=== PATIENT | female | born 1985 | race Caucasian/White ===

== ENCOUNTER 2019-01-20 14:16 | Emergency (ER) | payer OTHER, SELFPAY ==
[2019-01-20 14:46] VITALS: BP 143/97; PULSE 87; RESP 16; TEMP 37.1; O2SAT 100; BMI 24.1
[2019-01-20 14:59] LABS: RBC Urine None Seen (0-5/HPF)
[2019-01-20 15:05] LABS: Appearance Urine UA CLEAR; Bilirubin Urine UA NEGATIVE (NEGATIVE); Color Urine UA YELLOW; Glucose Urine UA NEGATIVE (Negative); Ketones Urine UA TRACE (NEGATIVE); Leukocyte Esterase Urine UA NEGATIVE (NEGATIVE); Nitrite Urine UA NEGATIVE (Negative); Occult Blood Urine UA NEGATIVE (Negative); Protein Urine UA NEGATIVE (Negative); Specific Gravity Urine UA 1.025 (1.000-1.035); Urobilinogen Urine UA 0.2 E.U./dL (0.2)
[2019-01-20 15:08] LABS: Pregnancy Test Urine Negative (Negative)
[2019-01-20 15:14] LABS: Amorphous Sediment Urine 1+; Bacteria Urine Occasional (0-1); Culture Indicated Urine Cult Not Indicated; Mucus Urine 1+ (Negative); Squamous Epithelial Cell Urine 0-1 /HPF (0-5/HPF); WBC Urine 0-1/HPF (0-5/HPF)
[2019-01-20 15:48] LABS: Add Manual Diff / Slide Review NO; Basophils Absolute Auto 100 /uL (0-100); Basophils Percent Auto 0.5 % (0-2); Eosinophils Absolute Auto 100 /uL (0-450); Hematocrit 40.3 % (36-46); Hemoglobin 13.9 g/dL (12.0-16.0); Lymphocytes Absolute Auto 2000 /uL (1100-4500); Lymphocytes Percent Auto 18.4 % (25-40); Mean Corpuscular HGB Conc 34.4 % (30-36); Mean Corpuscular Hemoglobin 31.2 PG (26-34); Mean Corpuscular Volume 90.7 fL (80-100); Monocytes Absolute Auto 700 /uL (0-900); Monocytes Percent Auto 6.7 % (3-14); Neutrophils Absolute Auto 8000 /uL (1500-7000); Neutrophils Percent Auto 73.4 % (50-75); Platelet Count 286 X10^3/uL (150-400); Red Blood Cell Count 4.45 X10^6/uL (4.0-5.2); Red Cell Distribution Width 12.3 % (11.6-14.8); White Blood Cell Count 10.9 X10^3/uL (4.5-11.0)
[2019-01-20 15:54] LABS: INR 0.9 (0.9-1.3); Prothrombin Time 10.4 SECONDS (10.1-12.7)
[2019-01-20 15:57] LABS: PTT Partial Thromboplastin Tim 32 SECONDS (26.4-36.2)
[2019-01-20 15:59] LABS: Alanine Aminotransferase 13 IU/L (<35); Albumin 4.4 g/dL (3.5-5.0); Albumin Globulin Ratio 1.6 (1.0-2.8); Alkaline Phosphatase 83 U/L (38-126); Aspartate Aminotransferase 21 IU/L (14-36); BUN Creatinine Ratio 25.7 (6-22); Bilirubin Total 0.5 mg/dL (0.2-1.3); Blood Urea Nitrogen 18 mg/dL (7-17); Calcium 9.1 mg/dL (8.4-10.2); Carbon Dioxide 25 mmol/L (22-32); Chloride 105 mmol/L (98-107); Estimated Glomerular Filt Rate > 60.0 mL/min (>60); Globulin 2.8 g/dL (1.7-4.1); Glucose 148 mg/dL (70-100); HEMOLYSIS < 15 (0-50); Lipase 98 U/L (23-300); Potassium 3.5 mmol/L (3.4-5.1); Sodium 138 mmol/L (137-145); Total Protein 7.2 g/dL (6.3-8.2)
--- NOTE | 2019-01-20 16:02 | DI.US.S_ITS ---
PROCEDURE: US PELVIC COMPLETE INDICATIONS: PAIN TECHNIQUE: Real-time scanning was performed of the pelvic organs, with image documentation. Additional endovaginal scanning was necessary due to incomplete visualization of the adnexal and endometrial structures by transabdominal scanning. COMPARISON: None. FINDINGS: Transabdominal scanning: Limited scanning through the kidneys shows no hydronephrosis. No pathologic free abdominal or pelvic fluid. Endovaginal scanning: Uterus: Uterus measures 7.5 x 4.5 x 5.8 cm. The endometrium measures 1.8 cm in combined thickness. No internal vascularity on color Doppler interrogation. Ovaries: The right ovary measures 2.2 x 1.3 x 1.3 cm and the left ovary measures 3.9 x 2.6 x 2.7 cm. There is a hypoechoic cystic collection in the left ovary measuring up to 2.2 x 1.4 x 1.7 cm with linear internal septations and distinct echoes suggestive of a hemorrhagic cyst. There is patent arterial flow demonstrated in the right and left ovaries. IMPRESSION: 1. Probable hemorrhagic cyst within the left ovary. Recommend a followup repeat study in 6 weeks to demonstrate resolution if clinically indicated. Dictated by: Garfield Pearson M.D. on 01/20/2019 at 16:42 Approved by: Garfield Pearson M.D. on 01/20/2019 at 16:45
[2019-01-20 16:54] VITALS: BP 129/90; PULSE 80; RESP 16; O2SAT 100
[2019-01-20] MEDS: KETOROLAC 60 MG/2 ML VIAL 30 MG IV (17:11)
[2019-01-20] MEDS: KETOROLAC 10MG PREPACK 1 BOTTLE MISC (18:37)
[2019-01-20 18:44] VITALS: BP 105/70; PULSE 77; RESP 18; TEMP 36.6; O2SAT 100
--- NOTE | 2019-01-20 20:33 | ED_ITS ---
HPI - Abdominal Pain <RERE Bowden - Last Filed: 01/20/19 20:38> General Chief Complaint: Abdominal Pain Stated Complaint: middle abd pain Time Seen by Provider: 01/20/19 16:12 Source: patient Mode of arrival: Ambulatory Limitations: no limitations History of Present Illness HPI narrative: The patient is a 33-year-old female nonsmoker who denies medical history who presents with a chief complaint of middle lower abdominal pain sudden onset last night during intercourse. She has not taken anything for pain. She denies any fevers nausea vomiting or diarrhea. Last bowel movement this morning and normal. Denies any dysuria urgency or frequency. Denies any vaginal discharge or bleeding. States that she is at no risk for sexually transmitted infections and is not concerned about that possibility. Related Data Previous Rx's Medication Instructions Recorded ketorolac 10 mg PO TID PRN #15 tab 01/20/19 Allergies Allergy/AdvReac Type Severity Reaction Status Date / Time No Known Drug Allergies Allergy Verified 01/20/19 17:11 Review of Systems <RERE Bowden - Last Filed: 01/20/19 20:38> Review of Systems Narrative: GENERAL: Denies chills, fatigue, malaise, fever, sweats. HEENT: Denies sinus pain, ear pain, sore throat, difficulty swallowing, dizziness. RESPIRATORY: Denies dyspnea, cough, wheezing, hemoptysis, sputum. CARDIOVASCULAR: Denies chest pain, palpitations, orthopnea, edema, GASTROINTESTINAL: See HPI : See HPI MUSCULOSKELETAL: denies weakness, joint pain, or bony pain SKIN: Denies rash, skin lesions, or other NEUROLOGIC: Denies weakness, headache, numbness, change in speech, confusion, seizures, incoordination. PSYCHIATRIC: No concerning psychosocial issues. 12 point review of systems is negative except for those stated above Patient History <RERE Bowden - Last Filed: 01/20/19 20:38> Social History Smoking Status: Never smoker Smoking Status: Never smoker alcohol intake frequency: holidays/special occasions only Substance Use Type: does not use Exam <RERE Bowden - Last Filed: 01/20/19 20:38> Narrative Exam Narrative: GENERAL: This is a well-nourished, well-developed patient, no acute distress HEAD: Atraumatic. Normocephalic. No temporal or scalp tenderness. EYES: Pupils equal round and reactive. Extraocular motions intact. No scleral icterus. No injection or drainage. ENT: Nose without bleeding, purulent drainage or septal hematoma. Throat without erythema, tonsillar hypertrophy or exudate. Uvula midline. Airway patent. NECK: Trachea midline. No JVD or lymphadenopathy. Supple, nontender, no meningeal signs. CARDIOVASCULAR: Regular rate and rhythm without murmurs, gallops, or rubs. RESPIRATORY: Clear to auscultation. Breath sounds equal bilaterally. No wheezes, rales, or rhonchi. No cough. No increased respiratory effort. No accessory muscle use. GASTROINTESTINAL: Abdomen soft, diffuse suprapubic tenderness to palpation, nondistended. No hepato-splenomegaly, or palpable masses. No guarding. Active bowel sounds all 4 quadrants EXTREMITIES: No clubbing, cyanosis, or edema. No joint tenderness, effusion, or edema noted. BACK: Nontender without deformity or crepitance. No flank tenderness. NEURO: AOx3. SKIN: No rash or erythema on visible skin Initial Vital Signs Initial Vital Signs: Vital Signs Temperature 98.8 F 01/20/19 14:46 Pulse Rate 87 01/20/19 14:46 Respiratory Rate 16 01/20/19 14:46 Blood Pressure 143/97 H 01/20/19 14:46 Pulse Oximetry 100 01/20/19 14:46 <Katie Hall MD - Last Filed: 01/22/19 11:58> Initial Vital Signs Initial Vital Signs: Vital Signs Temperature 98.8 F 01/20/19 14:46 Pulse Rate 87 01/20/19 14:46 Respiratory Rate 16 01/20/19 14:46 Blood Pressure 143/97 H 01/20/19 14:46 Pulse Oximetry 100 01/20/19 14:46 Course <RERE Bowden - Last Filed: 01/20/19 20:38> Orders Ordered: Discontinued Medications Ketorolac Tromethamine (Toradol) 60 mg IM NOW ONE Stop: 01/20/19 17:02 Last Admin: 01/20/19 17:11 Dose: Not Given Documented by: SCANAPO Ketorolac Tromethamine (Toradol) 30 mg IV NOW ONE Stop: 01/20/19 17:12 Last Admin: 01/20/19 17:11 Dose: 30 mg Documented by: SCANAPO Ketorolac Tromethamine (Toradol 10mg Prepack) 1 bottle MISC SEEINSTR ONE Stop: 01/20/19 18:20 Last Admin: 01/20/19 18:37 Dose: 1 bottle Documented by: LAI Vital Signs Vital signs: Vital Signs - 8 hr 01/20/19 14:46 01/20/19 16:54 01/20/19 18:44 Temperature 98.8 F 97.8 F Pulse Rate 87 80 77 Respiratory Rate 16 16 18 Blood Pressure 143/97 H 105/70 Blood Pressure [Right Arm] 129/90 Pulse Oximetry 100 100 100 <Katie Hall MD - Last Filed: 01/22/19 11:58> Orders Ordered: Discontinued Medications Ketorolac Tromethamine (Toradol) 60 mg IM NOW ONE Stop: 01/20/19 17:02 Last Admin: 01/20/19 17:11 Dose: Not Given Documented by: SCANAPO Ketorolac Tromethamine (Toradol) 30 mg IV NOW ONE Stop: 01/20/19 17:12 Last Admin: 01/20/19 17:11 Dose: 30 mg Documented by: SCANAPO Ketorolac Tromethamine (Toradol 10mg Prepack) 1 bottle MISC SEEINSTR ONE Stop: 01/20/19 18:20 Last Admin: 01/20/19 18:37 Dose: 1 bottle Documented by: LAI Vital Signs Vital signs: Vital Signs - 8 hr 01/20/19 14:46 01/20/19 16:54 01/20/19 18:44 Temperature 98.8 F 97.8 F Pulse Rate 87 80 77 Respiratory Rate 16 16 18 Blood Pressure 143/97 H 105/70 Blood Pressure [Right Arm] 129/90 Pulse Oximetry 100 100 100 MDM - Abdominal Pain <RERE Bowden - Last Filed: 01/20/19 20:38> Lab Data Result diagrams: 01/20/19 15:22 01/20/19 15:22 Labs: Lab Results 01/20/19 01/20/19 01/20/19 Range/Units 14:53 14:53 15:22 WBC 10.9 (4.5-11.0) X10^3/uL RBC 4.45 (4.0-5.2) X10^6/uL Hgb 13.9 (12.0-16.0) g/dL Hct 40.3 (36-46) % MCV 90.7 (80-100) fL MCH 31.2 (26-34) PG MCHC 34.4 (30-36) % RDW 12.3 (11.6-14.8) % Plt Count 286 (150-400) X10^3/uL Neut % (Auto) 73.4 (50-75) % Lymph % (Auto) 18.4 L (25-40) % Stark % (Auto) 6.7 (3-14) % Eos % (Auto) 1.0 L (2-4) % Baso % (Auto) 0.5 (0-2) % Neut # (Auto) 8000 H (5485-7837) /uL Lymph # (Auto) 2000 (5216-2682) /uL Stark # (Auto) 700 (0-900) /uL Eos # (Auto) 100 (0-450) /uL Baso # (Auto) 100 (0-100) /uL PT (10.1-12.7) SECONDS INR (0.9-1.3) APTT (26.4-36.2) SECONDS Sodium (137-145) mmol/L Potassium (3.4-5.1) mmol/L Chloride (98-107) mmol/L Carbon Dioxide (22-32) mmol/L BUN (7-17) mg/dL Creatinine (0.52-1.04) mg/dL Estimated GFR (>60) mL/min BUN/Creatinine Ratio (6-22) Glucose (70-100) mg/dL Calcium (8.4-10.2) mg/dL Total Bilirubin (0.2-1.3) mg/dL AST (14-36) IU/L ALT (<35) IU/L Alkaline Phosphatase (38-126) U/L Total Protein (6.3-8.2) g/dL Albumin (3.5-5.0) g/dL Globulin (1.7-4.1) g/dL Albumin/Globulin Ratio (1.0-2.8) Lipase (23-300) U/L Urine Color Yellow Urine Appearance Clear Urine pH 5.0 (4.5-8.0) Ur Specific [place] 1.025 (1.000-1.035) Urine Protein Negative (Negative) Urine Glucose (UA) Negative (Negative) g/dL Urine Ketones Trace H (NEGATIVE) Urine Occult Blood Negative (Negative) Urine Nitrate Negative (Negative) Urine Bilirubin Negative (NEGATIVE) Urine Urobilinogen 0.2 (0.2) E.U./dL Ur Leukocyte Esterase Negative (NEGATIVE) Urine RBC None seen (0-5/HPF) Urine WBC 0-1/hpf (0-5/HPF) Ur Squamous Epith Cells 0-1 /hpf (0-5/HPF) Amorphous Sediment 1+ Urine Bacteria Occasional (0-1) (None) Urine Mucus 1+ H (Negative) Ur Culture Indicated? Cult not indicated Urine Test Negative (Negative) 01/20/19 01/20/19 Range/Units 15:22 15:22 WBC (4.5-11.0) X10^3/uL RBC (4.0-5.2) X10^6/uL Hgb (12.0-16.0) g/dL Hct (36-46) % MCV (80-100) fL MCH (26-34) PG MCHC (30-36) % RDW (11.6-14.8) % Plt Count (150-400) X10^3/uL Neut % (Auto) (50-75) % Lymph % (Auto) (25-40) % Stark % (Auto) (3-14) % Eos % (Auto) (2-4) % Baso % (Auto) (0-2) % Neut # (Auto) (5509-3828) /uL Lymph # (Auto) (3664-2475) /uL Stark # (Auto) (0-900) /uL Eos # (Auto) (0-450) /uL Baso # (Auto) (0-100) /uL PT 10.4 (10.1-12.7) SECONDS INR 0.9 (0.9-1.3) APTT 32 (26.4-36.2) SECONDS Sodium 138 (137-145) mmol/L Potassium 3.5 (3.4-5.1) mmol/L Chloride 105 (98-107) mmol/L Carbon Dioxide 25 (22-32) mmol/L BUN 18 H (7-17) mg/dL Creatinine 0.70 (0.52-1.04) mg/dL Estimated GFR > 60.0 (>60) mL/min BUN/Creatinine Ratio 25.7 H (6-22) Glucose 148 H (70-100) mg/dL Calcium 9.1 (8.4-10.2) mg/dL Total Bilirubin 0.5 (0.2-1.3) mg/dL AST 21 (14-36) IU/L ALT 13 (<35) IU/L Alkaline Phosphatase 83 (38-126) U/L Total Protein 7.2 (6.3-8.2) g/dL Albumin 4.4 (3.5-5.0) g/dL Globulin 2.8 (1.7-4.1) g/dL Albumin/Globulin Ratio 1.6 (1.0-2.8) Lipase 98 (23-300) U/L Urine Color Urine Appearance Urine pH (4.5-8.0) Ur Specific [place] (1.000-1.035) Urine Protein (Negative) Urine Glucose (UA) (Negative) g/dL Urine Ketones (NEGATIVE) Urine Occult Blood (Negative) Urine Nitrate (Negative) Urine Bilirubin (NEGATIVE) Urine Urobilinogen (0.2) E.U./dL Ur Leukocyte Esterase (NEGATIVE) Urine RBC (0-5/HPF) Urine WBC (0-5/HPF) Ur Squamous Epith Cells (0-5/HPF) Amorphous Sediment Urine Bacteria (None) Urine Mucus (Negative) Ur Culture Indicated? Urine Test (Negative) Imaging Data pelvic ultrasound: Radiologist's impression: [place] [address] Ultrasound Report Signed Patient: Julee Parra LMR#: [id number] : 1985Acct:[id number] Age/Sex: 33 / FDate of Service: 01/20/19 Loc: ED Accession Number: [id number] Procedure: US pelvic complete Ordering Provider: Alysia Deleon-BC PROCEDURE: US PELVIC COMPLETE INDICATIONS: PAIN TECHNIQUE: Real-time scanning was performed of the pelvic organs, with image documentation. Additional endovaginal scanning was necessary due to incomplete visualization of the adnexal and endometrial structures by transabdominal scanning. COMPARISON: None. FINDINGS: Transabdominal scanning: Limited scanning through the kidneys shows no hydronephrosis. No pathologic free abdominal or pelvic fluid. Endovaginal scanning: Uterus: Uterus measures 7.5 x 4.5 x 5.8 cm. The endometrium measures 1.8 cm in combined thickness. No internal vascularity on color Doppler interrogation. Ovaries: The right ovary measures 2.2 x 1.3 x 1.3 cm and the left ovary measures 3.9 x 2.6 x 2.7 cm. There is a hypoechoic cystic collection in the left ovary measuring up to 2.2 x 1.4 x 1.7 cm with linear internal septations and distinct echoes suggestive of a hemorrhagic cyst. There is patent arterial flow demonstrated in the right and left ovaries. IMPRESSION: 1. Probable hemorrhagic cyst within the left ovary. Recommend a followup repeat study in 6 weeks to demonstrate resolution if clinically indicated. Dictated by: Garfield Pearson M.D. on 01/20/2019 at 16:42 Approved by: Garfield Pearson M.D. on 01/20/2019 at 16:45 [facility] Narrative Medical decision making narrative: The patient is a 33-year-old female who presents with a chief complaint of sudden onset of pelvic pain last night during intercourse. She responded well to Toradol in the emergency department. Her labs are within normal limits. Ultrasound is concerning for a left ovarian cyst with no torsion. Patient did decline a pelvic exam and STI testing in the emergency department. She is at low risk given that she is , and furthermore sudden onset does not correlate with PID or STI. I discussed at length that she needs to follow up with primary care provider, gave her contact information for the [facility] health resource management specialist as well as coming back to the emergency department for any acute concerns such as sudden onset of severe lower abdominal pain. Patient has no questions or concerns upon discharge and states understanding of return precautions as well as follow-up care. She was discharged with a prescription of Toradol and states understanding of not taking that with any other NSAIDs. <Katie Hall MD - Last Filed: 01/22/19 11:58> Lab Data Labs: Lab Results 01/20/19 01/20/19 01/20/19 Range/Units 14:53 14:53 15:22 WBC 10.9 (4.5-11.0) X10^3/uL RBC 4.45 (4.0-5.2) X10^6/uL Hgb 13.9 (12.0-16.0) g/dL Hct 40.3 (36-46) % MCV 90.7 (80-100) fL MCH 31.2 (26-34) PG MCHC 34.4 (30-36) % RDW 12.3 (11.6-14.8) % Plt Count 286 (150-400) X10^3/uL Neut % (Auto) 73.4 (50-75) % Lymph % (Auto) 18.4 L (25-40) % Stark % (Auto) 6.7 (3-14) % Eos % (Auto) 1.0 L (2-4) % Baso % (Auto) 0.5 (0-2) % Neut # (Auto) 8000 H (2249-7729) /uL Lymph # (Auto) 2000 (2735-1473) /uL Stark # (Auto) 700 (0-900) /uL Eos # (Auto) 100 (0-450) /uL Baso # (Auto) 100 (0-100) /uL PT (10.1-12.7) SECONDS INR (0.9-1.3) APTT (26.4-36.2) SECONDS Sodium (137-145) mmol/L Potassium (3.4-5.1) mmol/L Chloride (98-107) mmol/L Carbon Dioxide (22-32) mmol/L BUN (7-17) mg/dL Creatinine (0.52-1.04) mg/dL Estimated GFR (>60) mL/min BUN/Creatinine Ratio (6-22) Glucose (70-100) mg/dL Calcium (8.4-10.2) mg/dL Total Bilirubin (0.2-1.3) mg/dL AST (14-36) IU/L ALT (<35) IU/L Alkaline Phosphatase (38-126) U/L Total Protein (6.3-8.2) g/dL Albumin (3.5-5.0) g/dL Globulin (1.7-4.1) g/dL Albumin/Globulin Ratio (1.0-2.8) Lipase (23-300) U/L Urine Color Yellow Urine Appearance Clear Urine pH 5.0 (4.5-8.0) Ur Specific [place] 1.025 (1.000-1.035) Urine Protein Negative (Negative) Urine Glucose (UA) Negative (Negative) g/dL Urine Ketones Trace H (NEGATIVE) Urine Occult Blood Negative (Negative) Urine Nitrate Negative (Negative) Urine Bilirubin Negative (NEGATIVE) Urine Urobilinogen 0.2 (0.2) E.U./dL Ur Leukocyte Esterase Negative (NEGATIVE) Urine RBC None seen (0-5/HPF) Urine WBC 0-1/hpf (0-5/HPF) Ur Squamous Epith Cells 0-1 /hpf (0-5/HPF) Amorphous Sediment 1+ Urine Bacteria Occasional (0-1) (None) Urine Mucus 1+ H (Negative) Ur Culture Indicated? Cult not indicated Urine Test Negative (Negative) 01/20/19 01/20/19 Range/Units 15:22 15:22 WBC (4.5-11.0) X10^3/uL RBC (4.0-5.2) X10^6/uL Hgb (12.0-16.0) g/dL Hct (36-46) % MCV (80-100) fL MCH (26-34) PG MCHC (30-36) % RDW (11.6-14.8) % Plt Count (150-400) X10^3/uL Neut % (Auto) (50-75) % Lymph % (Auto) (25-40) % Stark % (Auto) (3-14) % Eos % (Auto) (2-4) % Baso % (Auto) (0-2) % Neut # (Auto) (0055-2652) /uL Lymph # (Auto) (5616-5853) /uL Stark # (Auto) (0-900) /uL Eos # (Auto) (0-450) /uL Baso # (Auto) (0-100) /uL PT 10.4 (10.1-12.7) SECONDS INR 0.9 (0.9-1.3) APTT 32 (26.4-36.2) SECONDS Sodium 138 (137-145) mmol/L Potassium 3.5 (3.4-5.1) mmol/L Chloride 105 (98-107) mmol/L Carbon Dioxide 25 (22-32) mmol/L BUN 18 H (7-17) mg/dL Creatinine 0.70 (0.52-1.04) mg/dL Estimated GFR > 60.0 (>60) mL/min BUN/Creatinine Ratio 25.7 H (6-22) Glucose 148 H (70-100) mg/dL Calcium 9.1 (8.4-10.2) mg/dL Total Bilirubin 0.5 (0.2-1.3) mg/dL AST 21 (14-36) IU/L ALT 13 (<35) IU/L Alkaline Phosphatase 83 (38-126) U/L Total Protein 7.2 (6.3-8.2) g/dL Albumin 4.4 (3.5-5.0) g/dL Globulin 2.8 (1.7-4.1) g/dL Albumin/Globulin Ratio 1.6 (1.0-2.8) Lipase 98 (23-300) U/L Urine Color Urine Appearance Urine pH (4.5-8.0) Ur Specific [place] (1.000-1.035) Urine Protein (Negative) Urine Glucose (UA) (Negative) g/dL Urine Ketones (NEGATIVE) Urine Occult Blood (Negative) Urine Nitrate (Negative) Urine Bilirubin (NEGATIVE) Urine Urobilinogen (0.2) E.U./dL Ur Leukocyte Esterase (NEGATIVE) Urine RBC (0-5/HPF) Urine WBC (0-5/HPF) Ur Squamous Epith Cells (0-5/HPF) Amorphous Sediment Urine Bacteria (None) Urine Mucus (Negative) Ur Culture Indicated? Urine Test (Negative) Discharge Plan Departure Patient Disposition: Home Clinical Impression: Cyst of left ovary Discharge Date/Time: 01/20/19 18:46 Instructions: DI for Ovarian Cyst Activity Restrictions/Additional Instructions: Today ultrasound shows a ovarian cyst on your left side. Please follow-up with primary care provider for repeat imaging etcetera. I've given you contact information for the [facility] health resource management specialist. They can help you arrange a PCP. I've given her prescription of Toradol. I sent this to [facility] in [facility]. I have given you a prescription of Toradol. This is an NSAID. Do not combine it with other NSAIDs such as Aleve or ibuprofen. I suggest taking it with some food, as it can irritate your stomach. Please come back to the emergency department for any acute concerns such as sudden severe abdominal pain, inability keep down fluids etc. Prescriptions: New ketorolac 10 mg tablet 10 mg PO TID PRN (Reason: pain) Qty: 15 RF: 0 Referrals: [facility] [Outside]
== END 2019-01-20 18:46 | disposition home or self-care (01) ==
PROVIDERS: Emergency Medicine; Emergency Provider Nurse Practitioner Family
DX: N83.202 Unspecified ovarian cyst, left side (principal)
CPT/HCPCS: 36415; 76830; 76856; 80053; 81001; 81025; 83690; 85025; 85610; 85730; 96374; 99282; 99284; J1885

== ENCOUNTER 2019-04-09 10:53 | Day surgery (SDC) | payer OTHER, SELFPAY ==
[2019-04-08 08:30] VITALS: BMI 23.6
[2019-04-09] VITALS (9 sets, daily range): BP systolic 102–123; BP diastolic 62–81; PULSE 79–89; RESP 10–16; TEMP 36.6–37.2; O2SAT 98–100; BMI 23.6
--- NOTE | 2019-04-09 | PATH_ITS ---
[facility] Accession Number: [id number] . 01 Material submitted: . hemorrhoids - RECTAL HEMORRHOID . 01 Diagnosis: Anus, Hemorrhoidectomy: External hemorrhoidal tissue. Negative for dysplasia and malignancy. MRV 04/11/2019 1241 Local . 01 Electronically signed: . Katlyn Cr MD, Pathologist NPI- [id number] . 01 Gross description: . RECTAL HEMORRHOID: Received in formalin is 1 fragment of abebe soft tissue measuring 12.0 x 1.5 x 1.2 cm. Tissue is inked,. Specimen is sectioned and submitted in logistics service representative sections in 1 cassette. /[facility] 04/09/2019 1950 Local . 01 Pathologist provided ICD-10: K64.4 . 01 CPT . 251044 Performed at: [address] [id number] MD Garfield Hernandez MD Phone: [phone]
--- NOTE | 2019-04-09 11:48 | PM.PREOP ---
Pre-operative Note Interval Note History & Physical reviewed/Exam performed by Physician: Yes Changes to H&P: No
[2019-04-09] MEDS: LACTATED RINGERS 1,000 ML 42 ML IV (11:55)
[2019-04-09] MEDS: CEFAZOLIN 2 GM/100 ML FROZ.PIGGY IV (12:15)
--- NOTE | 2019-04-09 12:33 | SUR.OPER ---
Lithotomy on padded OR bed, head on pillow, arms secured on padded arm boards at <90 degrees abduction. Legs secured in padded yellow fins stirrups.
[2019-04-09] MEDS: DIBUCAINE 1% OINT 28 GM 1 APPLIC TOP (12:43)
[2019-04-09] MEDS: BUPIVACAINE 0.25% (PF) VIAL 30 ML INJ (12:49)
--- NOTE | 2019-04-09 13:34 | P.OP_ITS ---
Operative Date/Time/Diagnoses Date of procedure: 04/09/19 Time of procedure: 13:34 Pre-op diagnosis: Umbilical hernia Hemorrhoids Post-op diagnosis: same Procedure & Clinicians Procedure: Open umbilical hernia repair without mesh Exicisional hemorrhoidectomy Same procedure as scheduled: Yes Indications: Symptomatic umbilical hernia Thrombosed external hemorrhoid Surgeon: Manny Muñoz Click Yes if Unassisted: Yes Anesthesia Type: General Operative Notes Findings: Thrombosed left lateral hemorrhoid Umbilical fascial defect 1 cm Specimen(s): other (hemorrhoid) Estimated Blood Loss (mL): 20 Procedure in detail: Patient was brought to the operating room placed supine on the table. Bilateral lower extremity compression devices were applied. General anesthesia was inducedand they were intubated with an endotracheal tube. They received 2 g of Ancef prior to skin incision. They were prepped and draped in sterile fashion. A time-out was performed ensure the correct patient procedure necessary equipment within the operating room. A curvilinear incision was made inferior to the umbilicus. The subcutaneous tissues were divided. The umbilical hernia was identified and was dissected off the umbilicus and circumferentially. The umbilical hernia sac was opened carefully using [place] and contained viable omentum. The hernia sac was then closed with 3 0 Vicryl suture. The sac was reduced into the abdomen and the fascia was cleared from above in order to accommodate the mesh. The fascial edges were then reapproximated with a [id number] 0 PDS suture. A Pro Loop polypropylene mesh was inserted over the fascial defect. It was secured to the fascia using 0 Prolene suture in interrupted fashion. The subcutaneous tissues were reapproximated using 3 0 Vicryl skin closed with 4 0 Monocryl upon by the application of Dermabond and Steri-Strips. Sponge instrument count at the end of the operation was correct. Rectal block was performed by injecting 20 mL of 0.25% bupivacaine into the intersphincteric groove. A internal examination of the anal canal was made. 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 It was grasped elevated and excised with electorcautery off the internal spincter. The mucosal defect was then closed with a running 0 Vicyrl suture. Hemostasis was checked. The specimen were passed off the field. Wound was irrigated with saline. Gelfoam was then placed into the anal anal. Sponge and instrument counts were correct at the end of the procedure. They emerged from anesthesia were extubated and transferred to the postoperative care unit in stable condition Complications: none Post-operative Condition: stable Disposition: same day surgery
[2019-04-09] MEDS: ONDANSETRON 4 MG ODT SL (15:14)
== END 2019-04-09 15:36 | disposition home or self-care (01) ==
PROVIDERS: Referring Provider Surgery; Visit Provider Surgery
PROC: (CPT 49585; principal; 2019-04-09 12:45)
PROC: (CPT 49585; 2019-04-09 12:45)
DX: K42.9 Umbilical hernia without obstruction or gangrene (principal); K64.4 Residual hemorrhoidal skin tags
CPT/HCPCS: 49585; 46250; J0330; J0690; J1100; J2405; J2704; J3010

== ENCOUNTER → 2019-05-01 11:35 | Outpatient (CLI) | payer OTHER, SELFPAY ==
[2019-05-01 12:20] LABS: Hemoglobin A1C% w Est Avg Glu 5.1 % (4.0-6.0)
[2019-05-01 12:33] LABS: Alanine Aminotransferase 14 IU/L (<35); Albumin 4.8 g/dL (3.5-5.0); Albumin Globulin Ratio 1.5 (1.0-2.8); Alkaline Phosphatase 72 U/L (38-126); Aspartate Aminotransferase 22 IU/L (14-36); BUN Creatinine Ratio 20.8 (6-22); Bilirubin Total 0.5 mg/dL (0.2-1.3); Blood Urea Nitrogen 15 mg/dL (7-17); Calcium 10.1 mg/dL (8.4-10.2); Carbon Dioxide 26 mmol/L (22-32); Chloride 104 mmol/L (98-107); Cholesterol 260 mg/dL (140-199); Estimated Glomerular Filt Rate > 60.0 mL/min (>60); Globulin 3.1 g/dL (1.7-4.1); Glucose 84 mg/dL (70-100); HDL Cholesterol 85 mg/dL (40-60); HEMOLYSIS < 15 (0-50); LDL Cholesterol Calculated 138 mg/dL (<100); Potassium 4.5 mmol/L (3.4-5.1); Sodium 138 mmol/L (137-145); Total Protein 7.9 g/dL (6.3-8.2); Triglycerides 187 mg/dL (35-150)
[2019-05-01 13:04] LABS: Thyroid Stimulating Hormone 2.02 uIU/mL (0.47-4.68)
== END ==
PROVIDERS: PCP Family Medicine; Referring Provider Family Medicine; Visit Provider Family Medicine
DX: E78.5 Hyperlipidemia, unspecified (principal); R73.9 Hyperglycemia, unspecified
CPT/HCPCS: 36415; 80053; 80061; 83036; 84443

== ENCOUNTER → 2019-11-22 09:47 | Outpatient (CLI) | payer OTHER, SELFPAY ==
[2019-11-22 10:55] LABS: Hemoglobin A1C% w Est Avg Glu 4.9 % (4.0-6.0)
[2019-11-22 11:50] LABS: Alanine Aminotransferase 13 IU/L (<35); Albumin 4.2 g/dL (3.5-5.0); Albumin Globulin Ratio 1.6 (1.0-2.8); Alkaline Phosphatase 65 U/L (38-126); Aspartate Aminotransferase 20 IU/L (14-36); BUN Creatinine Ratio 18.7 (6-22); Bilirubin Total 0.6 mg/dL (0.2-1.3); Blood Urea Nitrogen 14 mg/dL (7-17); Calcium 9.3 mg/dL (8.4-10.2); Carbon Dioxide 24 mmol/L (22-32); Chloride 106 mmol/L (98-107); Cholesterol 194 mg/dL (140-199); Estimated Glomerular Filt Rate > 60.0 mL/min (>60); Globulin 2.7 g/dL (1.7-4.1); Glucose 91 mg/dL (70-100); HDL Cholesterol 83 mg/dL (40-60); HEMOLYSIS < 15 (0-50); LDL Cholesterol Calculated 90 mg/dL (<100); Potassium 4.2 mmol/L (3.4-5.1); Sodium 137 mmol/L (137-145); Total Protein 6.9 g/dL (6.3-8.2); Triglycerides 106 mg/dL (35-150)
== END ==
PROVIDERS: PCP Family Medicine; Referring Provider Family Medicine; Visit Provider Family Medicine
DX: E78.5 Hyperlipidemia, unspecified (principal); R73.9 Hyperglycemia, unspecified; Z13.6 Encounter for screening for cardiovascular disorders
CPT/HCPCS: 36415; 80053; 80061; 83036

== ENCOUNTER → 2020-09-01 08:03 | Outpatient (CLI) | payer OTHER, SELFPAY ==
--- NOTE | 2020-09-01 08:04 | DI.US.S_ITS ---
PROCEDURE: US PELVIC COMPLETE INDICATIONS: DUB TECHNIQUE: Real-time scanning was performed of the pelvic organs, with image documentation. Additional endovaginal scanning was necessary due to incomplete visualization of the adnexal and endometrial structures by transabdominal scanning. COMPARISON: [facility], US, US PELVIC COMPLETE, 03/05/2019, 13:54. FINDINGS: T Uterus: Uterus is normal in size at 8.2 x 4.7 x 5.3 cm. The endometrium measures 15.9 mm in combined thickness. Polypoid endometrial echogenic mass present measuring up to 1.0 cm. No vascularity. Ovaries: Normal ovaries measuring 3.0 x 2.4 x 2.0 cm on the right and 2.4 x 1.8 x 1.4 cm on the left. Other: No pathologic free abdominal or pelvic fluid. IMPRESSION: 1.0 cm polypoid endometrial mass present which may represent a polyp; however differential would include both benign and malignant etiologies. Recommend gynecologic consultation. Dictated by: Devin Patel [facility] Interpreted: Mamadou Borrego MD on 09/01/2020 at 9:58 Transcribed by: CHEY on 09/01/2020 at 10:00 Approved by: Jose Borrego M.D. on 09/08/2020 at 11:20
== END ==
PROVIDERS: PCP Family Medicine; Referring Provider Family Medicine; Visit Provider Family Medicine
DX: N94.6 Dysmenorrhea, unspecified (principal); N85.9 Noninflammatory disorder of uterus, unspecified; Z87.42 Personal history of other diseases of the female genital tract
CPT/HCPCS: 76830; 76856

== ENCOUNTER → 2020-11-19 09:52 | Outpatient (CLI) | payer OTHER, SELFPAY ==
[2020-11-19 16:50] LABS: COVID19 -Nasal RAPID Negative (Negative)
== END ==
PROVIDERS: PCP Family Medicine; Visit Provider Specialist
DX: Z20.822 Contact with and (suspected) exposure to COVID-19 (principal); Z01.812 Encounter for preprocedural laboratory examination
CPT/HCPCS: 87635

== ENCOUNTER 2020-11-20 10:38 | Day surgery (SDC) | payer OTHER, SELFPAY ==
[2020-11-12 07:28] VITALS: BMI 23.6
[2020-11-20] VITALS (9 sets, daily range): BP systolic 108–122; BP diastolic 52–80; PULSE 54–90; RESP 14–16; TEMP 36.4–36.8; O2SAT 96–100; BMI 23.6
--- NOTE | 2020-11-20 | PATH_ITS ---
[facility] Accession Number: [id number] . 01 Material submitted: . endometrium - ENDOMETRIAL CURETTINGS/POLYPS . 02 Diagnosis: Endometrial Polyps, Curettage: Secretory endometrium with features consistent with endometrial polyp. Negative for atypical hyperplasia or malignancy. MRV 11/24/2020 1450 Local . 02 Electronically signed: . Jonathan Gupta MD, PhD, Pathologist NPI- [id number] . 01 Gross description: . ENDOMETRIAL CURETTINGS/POLYPS: Received in formalin are multiple fragment(s) of abebe, soft tissue measuring 4.5 x 3.3 x 1.5 cm in aggregate submitted entirely in 3 cassette(s) /[facility] 11/21/2020 0439 Local . 02 Pathologist provided ICD-10: N84.0 . 02 CPT . 272574 Performed at: 01 [facility] [address], [place], [place] [id number] MD Garfield Hernandez MD Phone: [phone] Performed at: 02 [facility] [address] [place], [place] [id number] MD Hilary Haynes MD Phone: [phone]
[2020-11-20] MEDS: LACTATED RINGERS 1,000 ML 100 ML IV (10:49)
--- NOTE | 2020-11-20 11:30 | PM.PREOP ---
Pre-operative Note COVID-19 COVID-19 status: Negative Result date/Date tested (Pos, Neg/Pending): 11/19/20 Interval Note History & Physical reviewed/Exam performed by Physician: Yes Changes to H&P: No
--- NOTE | 2020-11-20 12:37 | SUR.OPER ---
Lithotomy on padded OR bed, head on pillow, arms secured on padded arm boards at <90 degrees abduction. Legs secured in padded yellow fins stirrups.
--- NOTE | 2020-11-20 12:59 | PM.OP.1 ---
Operative Date/Time/Diagnoses Date of procedure: 11/20/20 Time of procedure: 12:59 Pre-op diagnosis: menorrhagia with endometrial polyps by ultrasound Post-op diagnosis: same Procedure & Clinicians Procedure: hysteroscopy with D&C and resection of polyps Same procedure as scheduled: Yes Indications: menorrhagia with ultrasound showing likelihood of endometrial polyps Surgeon: iFor Singh Click Yes if Unassisted: Yes Anesthesia Type: General Operative Notes Findings: significant number of of endometrial polyps and thickened endometrium Closure Type: not applicable Specimen(s): other ( endometrial curettings and polyp) Estimated Blood Loss (mL): 30 Blood products transfused: none Procedure in detail: The patient was brought to the operating room where she underwent general anesthesia. She was placed in low stirrups She was prepped and draped in usual sterile fashion with pulsatile stockings in place and functional, warming in place. Her bladder was drained with in and out catheter. No antibiotics are indicated. A single-tooth tenaculum was placed on the anterior lip of the cervix and the uterus dilated to #8 Hegar dilator. The hysteroscope was placed into the uterus with a sorbitol solution running and under constant suction. The resecting loop set at 80 W of cutting was used to resect the polyps down to the level of the endometrium. A endometrial curettage was performed. The polyps and the endometrial curettage was sent to pathology. The patient went to recovery room in good condition counts of instruments and sponges were correct. The sorbitol solution I=O approximately 4000 mL. Complications: none Post-operative Condition: stable Disposition: same day surgery Plan for aftercare: Home when awake and stable. Treatment and follow-up based on biopsy results.
[2020-11-20] MEDS: MEPERIDINE 50 MG/ML INJ 12.5 MG IV (13:18)
--- NOTE | 2020-11-20 14:01 | SUR.PHASEII ---
Discharge instructions given to pt. Pt states she understands discharge instructions. Pt states pain is a 2 and very tolerable. no distress noted. No complaints voiced.
== END 2020-11-20 14:07 | disposition home or self-care (01) ==
PROVIDERS: PCP Family Medicine; Referring Provider Specialist; Visit Provider Specialist
PROC: 0UDB8ZZ Extraction of Endometrium, Via Natural or Artificial Opening Endoscopic (ICD-10-PCS; CPT 58558; principal; 2020-11-20 11:45)
DX: N84.0 Polyp of corpus uteri
CPT/HCPCS: 58558; 81025; J1100; J1885; J2175; J2405; J2704; J3010